=== PATIENT | male | born 1975 | race African-American/Black ===

== ENCOUNTER 2016-11-14 15:04 | Emergency (ER) | payer MEDICAID ==
[~2016-11-14 15:04] MED LIST: NEURONTIN300 M1 PO
[2016-11-14 15:11] LABS: BASO % 0.4 % (0-2); EOS % 0.1 % (0-7); HCT-HEMATOCRIT 29.1 % (36.0-53.5); HGB-HEMOGLOBIN 9.7 gm/dl (13.5-17.0); IMMATURE GRANULOCYTES ABSOLUTE 0.05 tho/cmm (0-0.03); IMMATURE GRANULOCYTES PERCENT 0.5 % (0-0.3); LYMPH % 13.2 % (20-45); LYMPH ABSOLUTE COUNT 1.3 tho/cmm (0.8-4.5); MCH (MEAN CORPUSCULAR HGB) 31.3 pg (28.0-32.0); MCHC MEAN CORPUSCULAR HGB CONC 33.3 % (32.0-36.0); MCV (MEAN CELL VOLUME) 93.9 fl (82.0-96.0); MEAN PLATELET VOLUME 11.1 cmc (9.4-12.4); MONO % 4.9 % (0-12); MONOCYTE ABSOLUTE COUNT 0.5 tho/cmm (0.0-1.2); NEUTROPHIL ABSOLUTE COUNT 7.7 tho/cmm (1.6-8.0); NEUTROPHIL-AUTOMATED 7.7 tho/cmm (1.6-8.0); NEUTROPHILS % 80.9 % (40-80); PLATELET COUNT 234 tho/cmm (150-450); RED CELL DISTRIBUTION WIDTH 14.4 % (12.4-16.4); WHITE BLOOD COUNT 9.6 tho/cmm (4.0-10.0)
[2016-11-14 15:16] LABS: INR 0.9 INR (0.9-1.1); PROTHROMBIN TIME 10.9 SECONDS (9.0-13.6)
[2016-11-14 15:32] LABS: ANION GAP 14 mmol/L (0-20); BLOOD UREA NITROGEN 30 mg/dl (6-24); CARBON DIOXIDE-VENOUS 26 mmol/L (22-32); CHLORIDE 102 mmol/l (96-110); CREATININE 1.52 mg/dl (0.60-1.30); GLUCOSE 109 mg/dL (70-110); POTASSIUM 4.1 mmol/L (3.7-5.1); SODIUM 138 mmol/L (135-145); eGFR VALUE FOR BLACK 66 mL/Min
== END 2016-11-14 18:18 ==
LOC: EDMED 15:04
PROVIDERS: Emergency Medicine
DX: R00.0 Tachycardia, unspecified (principal); R06.02 Shortness of breath; I10 Essential (primary) hypertension; Z86.73 Personal history of transient ischemic attack (TIA), and cerebral infarction without residual deficits; Z79.899 Other long term (current) drug therapy
CPT/HCPCS: J7030; Q9967